=== PATIENT | male | born 1970 | race Caucasian/White ===

== ENCOUNTER 2020-05-27 10:44 | Emergency (ER) | payer OTHER ==
[~2020-05-27] VITALS: Ht 172.7 cm; Wt 79.4 kg
[2020-05-27] MEDS ORDERED: MEN'S MULTIVI200 MCG PO (10:55)
[2020-05-27] MEDS ORDERED: LISINOPRIL2.5 MG PO (10:55)
[2020-05-27] MEDS ORDERED: VITAMIN D3100 MCG PO (10:55)
[2020-05-27] MEDS ORDERED: CARTIA XT240 M1 PO (10:56)
[2020-05-27 11:49] LABS: HEMATOCRIT 37.6 % (42.0-52.0); HEMOGLOBIN 13.1 gm/dL (14.0-18.0); MCH 30.7 pg (26.0-34.0); MCHC 34.8 g/dL (28.0-37.0); MCV 88.4 fL (80.0-100.0); MPV 8.2 fl. (7.2-11.1); RBC 4.26 mil/uL (4.50-6.00); RDW-CV 13.3 % (10.5-14.5); WBC 5.5 thou/uL (4.0-11.0)
[2020-05-27 11:56] LABS: CALCIUM 8.5 mg/dL (8.5-10.1); POTASSIUM 4.2 mmol/L (3.5-5.1)
[2020-05-27] MEDS ORDERED: KEFLEX500 M1 PO (12:43)
[2020-05-27 13:02] VITALS: BP 130/81
== END 2020-05-27 13:03 | disposition home or self-care (01) ==
LOC: M.ERS 10:44
PROVIDERS: Emergency Medicine Emergency Medical Services
DX: M70.41 Prepatellar bursitis, right knee (principal); Y93.89 Activity, other specified